=== PATIENT | male | born 1945 | race American Indian/Alaskan Native ===

== ENCOUNTER → 2017-09-12 | Outpatient (CLI) | payer MEDICARE, OTHER ==
[~2017-09-12] MED LIST: CAND16 PO; CITA20 PO; ENOX120I SUBQ; FEXO180; FEXO180 PO; FISH1000 PO; HYDCHL12.5; LEVOCETIRIZINE 5 MG; LISI20; MONT10T; MULVITMINF PO; PAXIL 37.5 MG; PIOG45; SIMV10 PO; WARF5 PO; ZAFI20
[2017-09-12 12:14] LABS: BASOPHILS ABSOLUTE AUTO 0.05 K/mm3 (0.00-0.23); BASOPHILS PERCENT AUTO 1 % (0-2); EOSINOPHILS ABSOLUTE AUTO 0.16 K/mm3 (0.00-0.68); EOSINOPHILS PERCENT AUTO 3 % (0-6); Hemoglobin 15.8 g/dL (13.5-17.5); IMMATURE GRAN ABSOLUTE AUTO 0.01 K/mm3 (0.00-0.10); IMMATURE GRAN PERCENT AUTO 0 % (0-1); LYMPHOCYTES PERCENT AUTO 39 % (21-46); MONOCYTES ABSOLUTE AUTO 0.53 K/mm3 (0.16-1.47); MONOCYTES PERCENT AUTO 10 % (4-13); Mean Corpuscular HGB 33.3 pg (26.0-34.0); Mean Corpuscular HGB Conc 35.9 g/dL (31.5-36.5); Mean Corpuscular Volume 93 fL (80-100); Mean Platelet Volume 10.6 fL (9.1-12.4); NEUTROPHILS ABSOLUTE AUTO 2.35 K/mm3 (1.96-9.15); NEUTROPHILS PERCENT AUTO 46 % (41-73); Platelet Count 247 K/mm3 (150-400); RDW Standard Deviation 41.2 fL (35.1-46.3); Red Blood Cell Count 4.75 M/mm3 (4.30-5.90)
[2017-09-12 12:29] LABS: Alanine Aminotransfer (ALT/SGP 26 U/L (12-78); Albumin, Blood 3.9 g/dL (3.4-5.0); Albumin/Globulin Ratio 1.2 (0.8-1.8); Alk Phos 61 U/L (50-136); Anion Gap 9 mmol/L (6-16); Aspartate Aminotrans (AST/SGOT 15 U/L (12-37); Bilirubin, Total 1.3 mg/dL (0.1-1.0); Blood Urea Nitrogen 13 mg/dL (8-24); Bun/Creatinine Ratio 20.7 (12.0-20.0); CO2, Blood 24 mmol/L (21-32); Calcium, Blood 8.8 mg/dL (8.5-10.1); Chloride, Blood 107 mmol/L (98-108); Creatinine, Blood 0.63 mg/dL (0.60-1.20); Globulin, Blood 3.2 g/dL (2.2-4.0); Glomerular Filtration Rate >60 (60-); Glucose, Blood 101 mg/dL (70-99); Potassium, Blood 4.2 mmol/L (3.5-5.5); Sodium, Blood 140 mmol/L (136-145); Total Protein, Blood 7.1 g/dL (6.4-8.2)
== END | disposition home or self-care (01) ==
LOC: LAB 12:01
PROVIDERS: Emergency Medicine
DX: R42 Dizziness and giddiness (principal); R53.83 Other fatigue
CPT/HCPCS: 80053; 84443; 85025

== ENCOUNTER 2019-03-06 12:24 | Day surgery (SDC) | payer MEDICARE, OTHER ==
[~2019-03-06] VITALS: Ht 172.7 cm; Wt 115.9 kg
[~2019-03-06 12:24] MED LIST changes: +ALBU90OI61; +ELIQUIS5 MG PO; +EPINEPHRIN0.3 MG/0.3; +LISI20 PO; +METF500 PO; +SIMV40 PO; +Simvastatin40 MG PO; +Simvastatin80 MG PO
== END 2019-03-06 15:00 | disposition home or self-care (01) ==
LOC: ORSCSDS 12:24
PROVIDERS: Internal Medicine Gastroenterology
PROC: 0DBM8ZX Excision of Descending Colon, Via Natural or Artificial Opening Endoscopic, Diagnostic (ICD-10-PCS; principal; 2019-03-06 13:45)
DX: Z12.11 Encounter for screening for malignant neoplasm of colon (principal); Z86.010 Personal history of colon polyps; D12.4 Benign neoplasm of descending colon; K57.30 Diverticulosis of large intestine without perforation or abscess without bleeding; K64.8 Other hemorrhoids; G47.33 Obstructive sleep apnea (adult) (pediatric); E66.01 Morbid (severe) obesity due to excess calories; Z68.41 Body mass index [BMI] 40.0-44.9, adult; I10 Essential (primary) hypertension; E11.9 Type 2 diabetes mellitus without complications; Z87.891 Personal history of nicotine dependence; Z79.899 Other long term (current) drug therapy
CPT/HCPCS: 82947; 88305; J2704; J7120

== ENCOUNTER → 2020-04-20 | Outpatient (CLI) | payer MEDICARE, OTHER | END | disposition home or self-care (01) | LOC: LAB 18:17 → LAB SHORT 18:17 | DX: R31.9 Hematuria, unspecified (principal) | CPT/HCPCS: 87086 ==

== ENCOUNTER → 2020-04-28 | Outpatient (CLI) | payer MEDICARE, OTHER ==
[2020-04-28 16:58] LABS: White Blood Cells, Urine Not Seen /hpf (0-5)
[2020-04-28 16:59] LABS: Bacteria Rare /hpf; Calcium Oxalate Crystals Few /hpf; Squamous Epithelial Cells Rare /hpf (Few); Uric Acid Crystals Few /hpf
== END | disposition home or self-care (01) ==
LOC: LAB SHORT 10:40 → LAB EV 10:40
PROVIDERS: Family Medicine
DX: R30.9 Painful micturition, unspecified (principal); R31.9 Hematuria, unspecified
CPT/HCPCS: 81015; 87086

== ENCOUNTER 2021-04-30 09:52 | Inpatient (IN) | payer MEDICARE, OTHER ==
[~2021-04-30] VITALS: Ht 172.7 cm; Wt 123.6 kg
[2021-04-30 10:48] LABS: PCO2 Arterial 29.2 mmHg (35-45); PO2 Arterial 72.9 mmHg (80-100); pH Blood Arterial 7.51 (7.35-7.45)
[2021-04-30 11:34] LABS: BASOPHILS ABSOLUTE AUTO 0.05 K/mm3 (0.00-0.23); BASOPHILS PERCENT AUTO 1 % (0-2); EOSINOPHILS ABSOLUTE AUTO 0.01 K/mm3 (0.00-0.68); EOSINOPHILS PERCENT AUTO 0 % (0-6); Hematocrit 43.4 % (37.0-53.0); Hemoglobin 15.5 g/dL (13.5-17.5); IMMATURE GRAN ABSOLUTE AUTO 0.25 K/mm3 (0.00-0.10); IMMATURE GRAN PERCENT AUTO 2 % (0-1); LYMPHOCYTES ABSOLUTE AUTO 1.16 K/mm3 (0.84-5.20); LYMPHOCYTES PERCENT AUTO 11 % (21-46); MONOCYTES ABSOLUTE AUTO 0.64 K/mm3 (0.16-1.47); MONOCYTES PERCENT AUTO 6 % (4-13); Mean Corpuscular HGB 33.3 pg (26.0-34.0); Mean Corpuscular HGB Conc 35.7 g/dL (31.5-36.5); Mean Corpuscular Volume 93 fL (80-100); Mean Platelet Volume 11.4 fL (9.1-12.4); NEUTROPHILS ABSOLUTE AUTO 8.31 K/mm3 (1.96-9.15); NEUTROPHILS PERCENT AUTO 80 % (41-73); NRBC ABSOLUTE 0.07 K/mm3 (0.00-0.02); NRBC Auto 0.7 /100 WBC (0.0-0.2); Platelet Count 252 K/mm3 (150-400); RDW Coefficient Variation 12.4 % (11.7-14.2); RDW Standard Deviation 42.9 fL (35.1-46.3); Red Blood Cell Count 4.65 M/mm3 (4.30-5.90); White Blood Cell Count 10.42 K/mm3 (4.00-11.30)
[2021-04-30 11:45] LABS: Alanine Aminotransfer (ALT/SGP 42 U/L (12-78); Albumin, Blood 2.7 g/dL (3.4-5.0); Albumin/Globulin Ratio 0.6 (0.8-1.8); Alk Phos 69 U/L (50-136); Anion Gap 12 mmol/L (6-16); Aspartate Aminotrans (AST/SGOT 50 U/L (12-37); Bilirubin, Total 1.5 mg/dL (0.1-1.0); Blood Urea Nitrogen 36 mg/dL (8-24); Bun/Creatinine Ratio 36.5 (12.0-20.0); CO2, Blood 21 mmol/L (21-32); Chloride, Blood 95 mmol/L (98-108); Creatinine, Blood 0.99 mg/dL (0.60-1.20); Globulin, Blood 4.4 g/dL (2.2-4.0); Glomerular Filtration Rate >60 (60-); Glucose, Blood 303 mg/dL (70-99); Potassium, Blood 3.6 mmol/L (3.5-5.5); Sodium, Blood 128 mmol/L (136-145); Total Protein, Blood 7.1 g/dL (6.4-8.2); Troponin I 0.033 ng/mL (0.000-0.040)
[2021-04-30] MEDS ORDERED: MAGNESIUM OXID500 MG PO (17:57)
[2021-04-30] MEDS ORDERED: Ocuvite Preser1 EACH PO (17:58)
--- NOTE | 2021-04-30 18:38 | NUR ---
PATIENT IS ALERT AND ORIENTED AND COOPERATIVE WITH CARE. ON BIPAP. 1PA WIT FWW. USES THE URINAL STANDING AT THE BEDSIDE. MEDICATIONS RECONCILED WITH THE PATIENT'S EULALIA OVER THE PHONE. WILL CONTINUE TO MONITOR
--- NOTE | 2021-05-01 03:45 | NUR ---
Shift Summary Pt admitted for Covid 19+. Code status Full code. The plan is to decrease 02 needs. Pt currently on bipap. Sats drop during this shift. Pt placed proned. This helped with 02 levels.
[2021-05-01 05:49] LABS: BASOPHILS ABSOLUTE AUTO 0.04 K/mm3 (0.00-0.23); BASOPHILS PERCENT AUTO 0 % (0-2); EOSINOPHILS ABSOLUTE AUTO 0.03 K/mm3 (0.00-0.68); EOSINOPHILS PERCENT AUTO 0 % (0-6); Hematocrit 42.3 % (37.0-53.0); Hemoglobin 14.9 g/dL (13.5-17.5); Mean Corpuscular HGB 32.8 pg (26.0-34.0); Mean Corpuscular HGB Conc 35.2 g/dL (31.5-36.5); Mean Corpuscular Volume 93 fL (80-100); NRBC ABSOLUTE 0.06 K/mm3 (0.00-0.02); NRBC Auto 0.5 /100 WBC (0.0-0.2); RDW Coefficient Variation 12.2 % (11.7-14.2); Red Blood Cell Count 4.54 M/mm3 (4.30-5.90)
[2021-05-01 05:55] LABS: IMMATURE GRAN ABSOLUTE AUTO 0.17 K/mm3 (0.00-0.10); IMMATURE GRAN PERCENT AUTO 1 % (0-1); LYMPHOCYTES PERCENT AUTO 8 % (21-46); MONOCYTES ABSOLUTE AUTO 0.55 K/mm3 (0.16-1.47); MONOCYTES PERCENT AUTO 4 % (4-13); Mean Platelet Volume 11.9 fL (9.1-12.4); NEUTROPHILS ABSOLUTE AUTO 11.41 K/mm3 (1.96-9.15); NEUTROPHILS PERCENT AUTO 86 % (41-73); Platelet Count 159 K/mm3 (150-400)
[2021-05-01 06:07] LABS: Albumin, Blood 2.7 g/dL (3.4-5.0); Anion Gap 7 mmol/L (6-16); Blood Urea Nitrogen 30 mg/dL (8-24); Bun/Creatinine Ratio 40.2 (12.0-20.0); CO2, Blood 27 mmol/L (21-32); Calcium, Blood 7.9 mg/dL (8.5-10.1); Chloride, Blood 100 mmol/L (98-108); Creatinine, Blood 0.75 mg/dL (0.60-1.20); Glomerular Filtration Rate >60 (60-); Glucose, Blood 324 mg/dL (70-99); Phosphorus, Blood 3.4 mg/dL (2.5-4.9); Potassium, Blood 3.6 mmol/L (3.5-5.5); Sodium, Blood 134 mmol/L (136-145)
[2021-05-01 11:48] LABS: Source, Urine Clean Catch
[2021-05-01 11:50] LABS: Appearance, Urine Clear (Clear); Bilirubin, Urine Neg (Neg); Blood, Urine 1+ (Neg); Color, Urine Yellow (P-Yellow); Glucose Qualitative, Urine 4+ (Neg); Ketones, Urine 3+ (Neg); Leukocyte Esterase, Urine Neg (Neg); Nitrite, Urine Neg (Neg); Protein, Urine 2+ (Neg); Specific Gravity, Urine 1.015 (1.003-1.022); Urobilinogen, Urine 1+ (Normal)
[2021-05-01 11:58] LABS: Bacteria Not Seen /hpf; Red Blood Cells, Urine 0-2 /hpf (0-2); Squamous Epithelial Cells Not Seen /hpf (Few); White Blood Cells, Urine Not Seen /hpf (0-5)
--- NOTE | 2021-05-01 15:27 | NUR ---
MIDIFT SUMMARY A/Ox3, currently on V60 with Bipap setting. Patient not able to tolerate off Bipap and will desat to low 80's. Patient removed bipap mask and desatted to mid 40's at one point. Bipap is keeping sats between 85-94. With any PO intake, sats will tank. Recommending patient be NPO at this time. Discussed with Dr. Massey RE respiratory concerns and that patient needs to be in PCU. Bipap settings have been maxed out, patient has been proning and repositioning to sides frequently without major improvements. No new order. Report handed to Dulce BEVERLY.
--- NOTE | 2021-05-01 17:33 | NUR ---
PATIENT IS ALERT AND ORIENTED, FORGETFUL AT TIMES. ON BIPAP. USES THE URINAL AT BEDSIDE. HAD A BM TODAY. NO C/O PAIN. 16 BREATHS PER MINUTE. CONTINUOUS PUSLSE OX. WILL CONTINUE TO MONITOR
--- NOTE | 2021-05-02 06:01 | NUR ---
0520 PT TRANSFERED TO ICU 14 AFTER UMBRELLA TIPPER HAND FOR INTUBATION. DR TOWNSEND AT BEDSIDE. PT MED WITH ETOMIDATE 20 MG IV AT 0521 SUCC 150 MG IV AT 0521 VERSED 2 MG IV AT 0522 VERSED 2 MG IV AT 0523 0523 PT INTUBATED WITH 8.0 ET TUBE. 27 CM AT TEETH. GOOD COLOR CHANGE, BILAT BREATH SOUNDS, AND VERIFIED BY CHEST XRAY. OG TUBE PLACED. ET TUBE WITHDRAWN TO 25 CM AT TEETH BY RT PER DR TOWNSEND. 0543 PT GIVEN 2 MG VERSED AND PROPOFOL GTT INFUSING.
[2021-05-02 06:16] LABS: BASOPHILS ABSOLUTE AUTO 0.04 K/mm3 (0.00-0.23); BASOPHILS PERCENT AUTO 0 % (0-2); EOSINOPHILS ABSOLUTE AUTO 0.01 K/mm3 (0.00-0.68); EOSINOPHILS PERCENT AUTO 0 % (0-6); Mean Corpuscular HGB Conc 34.9 g/dL (31.5-36.5); Mean Corpuscular Volume 95 fL (80-100); NRBC ABSOLUTE 0.15 K/mm3 (0.00-0.02); NRBC Auto 1.2 /100 WBC (0.0-0.2); RDW Coefficient Variation 13.1 % (11.7-14.2); RDW Standard Deviation 45.5 fL (35.1-46.3); Red Blood Cell Count 4.54 M/mm3 (4.30-5.90); White Blood Cell Count 12.81 K/mm3 (4.00-11.30)
--- NOTE | 2021-05-02 06:26 | NUR ---
0074 PT CALLED AND NOTIFIED OF PT ROOM CHANGE. UPDATED ON CURRENT PT STATUS. IS ADVISED TO CALL ICU FOR MORE INFORMATION.
--- NOTE | 2021-05-02 06:31 | NUR ---
SUMMARY PT ON BIPAP AND NOT TOLERATING WELL. PT FOUND IN BATHROOM AFTER TAKING OFF BIPAP AND PULLING OUT IV. PT PLACED ON BIPAP AND TX PER EMAR. PT ABLE TO RELAX AND BREATHE EASIER. PT HAD A POWERGLIDE PLACED. PT BECAME AGITATED AND ATTEMPTED TO GET OUT OF BED AFTER REMOVING BIPAP MASK. PT PLACED IN DOROTHY VEST. IV HALDOL ORDERED AND GIVEN WITH NO REDUCTION IN AGITATION. A RAPID RESPONSE WAS CALLED. PT WAS ASSESSED AND MOVED TO ICU.
[2021-05-02 06:34] LABS: Albumin, Blood 2.6 g/dL (3.4-5.0); Anion Gap 11 mmol/L (6-16); Blood Urea Nitrogen 49 mg/dL (8-24); CO2, Blood 23 mmol/L (21-32); Calcium, Blood 7.8 mg/dL (8.5-10.1); Chloride, Blood 104 mmol/L (98-108); Creatinine, Blood 2.04 mg/dL (0.60-1.20); Glomerular Filtration Rate 32 (60-); Glucose, Blood 271 mg/dL (70-99); IMMATURE GRAN ABSOLUTE AUTO 0.25 K/mm3 (0.00-0.10); IMMATURE GRAN PERCENT AUTO 2 % (0-1); LYMPHOCYTES ABSOLUTE AUTO 0.77 K/mm3 (0.84-5.20); LYMPHOCYTES PERCENT AUTO 6 % (21-46); MONOCYTES ABSOLUTE AUTO 0.35 K/mm3 (0.16-1.47); MONOCYTES PERCENT AUTO 3 % (4-13); Magnesium, Blood 2.1 mg/dL (1.6-2.4); Mean Platelet Volume 11.9 fL (9.1-12.4); NEUTROPHILS ABSOLUTE AUTO 11.39 K/mm3 (1.96-9.15); NEUTROPHILS PERCENT AUTO 89 % (41-73); Phosphorus, Blood 3.5 mg/dL (2.5-4.9); Platelet Count 115 K/mm3 (150-400); Sodium, Blood 138 mmol/L (136-145)
--- NOTE | 2021-05-02 06:45 | NUR ---
PT ARRIVES TO ICU 14 FROM MEDICAL FLOOR POST RAPID RESPONSE CALL. SLIDE TRANSFERRED TO BED WITH FIVE PERSON ASSIST. THIS AT 0520 THIS MORNING. PT EMERGENTLY INTUBATED BY DR TOWNSEND. PT PLACED TO PROPOFOL AND NEEDED TITRATION 70 MCG'S TO DECREASE PT'S AGITATION AND HELP HIM BECOME TOLERANT OF VENT. VERSED DRIP WAS ORDERED BY DR TOWNSEND. THIS WAS NOT STARTED SECONDARY TO BRIEF HYPOTENSION. DECREASED PROPOFOL TO 50 MCG'S. URINE SAMPLE OBTAINED FROM NEW CATHETER. SPUTUM SAMPLE OBTAINED AND SENT FOR TESTING. WILL CONTINUE TO MONITOR PT AND REPORT OFF TO ONCOMING RN.
--- NOTE | 2021-05-02 18:30 | NUR ---
SHIFT SUMMARY PT INADEQUATELY SEDATED ON ARRIVAL THIS MORNING, UNABLE TO INCREASE SEDATIVES D/T HYPOTENSION WITH MAP 40'S AND 50'S. DR. OROZCO AND DR. GOMEZ INSERTED L IJ CENTRAL LINE, LEVOPHED STARTED WITH GOOD RESULTS, SEDATION TITRATED UP TO COMFORT. AFTER TITRATIONS, MAPS REMAINED 60'S-70'S, RR 20'S, PT STOPPED GRIMACING. PROPOFOL 50MCG, VERSED 5MG/HR, LEVOPHED 12MCG. LS DIMINISHED, NO ETT SECRETIONS. VENT AC 16, Vt 450, PEEP 15, FIO2 DECREASED TO 70% TODAY WITH SPO2 >90%. HR 60'S SINUS WITH PAC'S, ABD SOFT WITH BT PRESENT, OGT TO LIWS, NO BM TODAY. URINE OUTPUT POOR, 300ML THIS SHIFT, DARK BROWN IN COLOR. UPDATED.
--- NOTE | 2021-05-02 19:35 | NUR ---
ASSUMPTION OF CARE RECEIVED REPORT FROM LUZ BEVERLY AT 1900. PATIENT INTUBATED WITH 8.0, 25 CM AT THE TEETH, VENT SETTINGS AC 16/450/15/70% WITH 02 SATS ABOVE 95%. LUNG SOUNDS DIMINISHED T/O. SCANT WHITE SECRETIONS SUCTIONED VIA ETT. SEDATION OF PROPOFOL AT 50MCG/KG AND VERSED OF 5MG/HR WITH SAS OF 3-4. NO SPONTANEOUS OR PURPOSEFUL MOVEMENTS NOTED. PUPILS 3MM, EQUAL, ROUND AND REACTIVE TO LIGHT. HEART RATE 60'S, NSR WITH LEVOPHED AT 12MCG/MIN, MAP IN 70'S. OG TO LIS WITH SCANT GREEN BILE DRAINAGE IN TUBING, HYPOACTIVE BT'S. MESSER TO GRAVITY WITH DARK MARIELA URINE. WILL REVIEW ORDERS AND TREAT PRESCRIBED.
--- NOTE | 2021-05-03 00:30 | NUR ---
REASSESSMENT REASSESSMENT COMPLETED AT 0000. NO ACUTE CHANGES FROM INITIAL ASSESSMENT. LEVOPHED DECREASED TO 10MCG/HR, CBG ELEVATED, TREATED PER PROTOCOL. PHONE CALL TO DR. TOWNSEND TO NOTIFY, AWAITING A RETURN CALL. VITALS CURRENTLY STABLE, CONTINUING TO MONITOR.
[2021-05-03 03:27] LABS: BASOPHILS ABSOLUTE AUTO 0.04 K/mm3 (0.00-0.23); BASOPHILS PERCENT AUTO 0 % (0-2); EOSINOPHILS PERCENT AUTO 0 % (0-6); Hematocrit 40.2 % (37.0-53.0); Hemoglobin 13.8 g/dL (13.5-17.5); IMMATURE GRAN ABSOLUTE AUTO 0.24 K/mm3 (0.00-0.10); IMMATURE GRAN PERCENT AUTO 2 % (0-1); LYMPHOCYTES ABSOLUTE AUTO 0.74 K/mm3 (0.84-5.20); LYMPHOCYTES PERCENT AUTO 5 % (21-46); MONOCYTES PERCENT AUTO 5 % (4-13); Mean Corpuscular HGB 32.9 pg (26.0-34.0); Mean Corpuscular HGB Conc 34.3 g/dL (31.5-36.5); Mean Corpuscular Volume 96 fL (80-100); Mean Platelet Volume 12.5 fL (9.1-12.4); NEUTROPHILS ABSOLUTE AUTO 13.82 K/mm3 (1.96-9.15); NEUTROPHILS PERCENT AUTO 89 % (41-73); NRBC ABSOLUTE 0.03 K/mm3 (0.00-0.02); NRBC Auto 0.2 /100 WBC (0.0-0.2); Platelet Count 102 K/mm3 (150-400); RDW Standard Deviation 49.3 fL (35.1-46.3); White Blood Cell Count 15.54 K/mm3 (4.00-11.30)
[2021-05-03 03:43] LABS: Albumin, Blood 2.2 g/dL (3.4-5.0); Anion Gap 9 mmol/L (6-16); Blood Urea Nitrogen 61 mg/dL (8-24); Bun/Creatinine Ratio 21.1 (12.0-20.0); CO2, Blood 21 mmol/L (21-32); Calcium, Blood 7.2 mg/dL (8.5-10.1); Chloride, Blood 105 mmol/L (98-108); Creatinine, Blood 2.89 mg/dL (0.60-1.20); Glomerular Filtration Rate 21 (60-); Glucose, Blood 420 mg/dL (70-99); Phosphorus, Blood 5.6 mg/dL (2.5-4.9); Potassium, Blood 4.6 mmol/L (3.5-5.5); Sodium, Blood 135 mmol/L (136-145)
--- NOTE | 2021-05-03 04:42 | NUR ---
REASSESSMENT REASSMENT OCCURRED AT 0400 WITH NO ACUTE CHANGES. NOTED PATIENT'S GLUCOSE VIA LAB DRAW, INSULIN S/S GIVEN. HEART RATE MOE 50'S WITH TRENDS DOWN TO 40'S, DECREASED VERSED TO 4MG/HR. PROPOFOL CONTINUES AT 50MCG/KG/MIN. LEVOPHED TITRATED DOWN TO 8MCG/HR, WITH MAPS ABOVE 65. WILL CONTINUE TO MONITOR.
[2021-05-03 05:35] LABS: PCO2 Arterial 46.3 mmHg (35-45); PO2 Arterial 102 mmHg (80-100)
[2021-05-03 05:36] LABS: pH Blood Arterial 7.26 (7.35-7.45)
--- NOTE | 2021-05-03 06:05 | NUR ---
SHIFT SUMMARY PATIENT INTUBATED AND SEDATED, FIO2 DECREASED TO 65% FROM 70%. TITRATED LEVOPHED TO 7MCG/MIN WITH MAP ABOVE 65. TITRATED VERSED TO 4MG/HR FOR LOW HEART RATE. HEART RATE NOW 50-60, PATIENT REMAINS VENT TOLERANT AND CALM/QUIET. HIGH BLOOD SUGARS, ADDRESSED WITH DR. BARRIGA, MEDICATED WITH 15 UNIT OF INSULIN CHARTED WELL INCREASING LONG ACTING INSULIN AND MEDICATING CHARTED. ABG RESULTED WITH CRITICAL PH, NOTIFIED DR. GRESHAM WITH NO CHANGES TO VENT SETTINGS ORDERED AT THIS TIME. OG TO LIS WITH DARK GREEN DRAINAGE, 100CC OUTPUT IN CANISTER. MESSER CATHETER STARTED WITH MARIELA URINE, CLEARING TO YELLOW WITH 1000CC DOCUMENTED. WILL CONTINUE TO MONITOR AND TREAT PRESCRIBED.
--- NOTE | 2021-05-03 10:27 | NUR ---
ASSUMED CARE NOTE: ASSUMED CARE OF PT AT 0700. PT IS SEDATED AND VENTED. SEDATED WITH VERSED AND PROPOFOL. PT HAS PINPOINT PUPILS, NO GAG/COUGH PRESENT. TITRATING SEDATIVES. VENT SETTINGS RR16, TV450, PEEP 15, FiO2 65% LUNG SOUNDS ARE DIM T/O, SPO2 REMAINING ABOVE 90% PT IS IN SB WITH HR IN THE 50'S, FREQUENT PAC'S PRESENT, PROLONGED QT NOTED. PT ON LEVOPHED AT 7MCG/MIN , SBP ABOVE 100, MAP ABOVE 65. INSULIN DRIP INITIATED, CURRENTLY RUNNING AT 6U/HR. WILL CONTINUE TO MONITOR PT T/O SHIFT.
[2021-05-03 10:38] LABS: Source, Urine Catheter
[2021-05-03 11:22] LABS: Bilirubin, Urine Neg (Neg); Blood, Urine 4+ (Neg); Glucose Qualitative, Urine 3+ (Neg); Ketones, Urine Neg (Neg); Leukocyte Esterase, Urine 1+ (Neg); Nitrite, Urine Neg (Neg); Protein, Urine 2+ (Neg); Urobilinogen, Urine NORM (Normal)
[2021-05-03 11:24] LABS: Appearance, Urine Hazy (Clear); Color, Urine Yellow (P-Yellow)
[2021-05-03 11:26] LABS: Bacteria Few /hpf; Squamous Epithelial Cells Few /hpf (Few); Uric Acid Crystals Mod /hpf; White Blood Cells, Urine 0-2 /hpf (0-5)
--- NOTE | 2021-05-03 18:29 | NUR ---
SHIFT SUMMARY: PT CONTINUES TO BE ON VENT WITH NO CHANGES TO THE SETTINGS RR16, TV450, PEEP 15, FiO2 60% PT HAS HAD SCANT AMOUNT OF BROWN SECRETIONS VIA ETT. VERSED WAS PLACED ON SB. PROPOFOL AT 45MCG/KG/MIN. PT HAS BEEN TOLERATING VENT. PT HAS BEEN IN SB WITH PAC'S HR IN THE 50'S. BP STABLE WITH LEVOPHED AT 7MCG/MIN, MAP ABOVE 65. PT STARTED ON TUBE FEED BOLUS, JEVITY 1.2, 100ML GIVEN, RESIDUALS TO BE CHECKED AT 2130, BEFORE NEXT FEED. ABD SLIGHTLY DISTENDED, SOFT NON-TENDER, HYPOACTIVE IN ALL QUADRANTS. MESSER PATENT AND DRAINING MARIELA COLORED URINE, UA COLLECTED THIS SHIFT. INSULIN RUNNING AT 23U/HR, HOURLY CBG OBTAINED, SAFE-SET TO CENTRAL LINE APPLIED. WILL CONTINUE TO MONITOR PT UNTIL REPORT IS GIVEN TO ONCOMING SHIFT.
--- NOTE | 2021-05-03 19:38 | NUR ---
ASSUMPTION OF CARE RECEIVED REPORT FROM LAYLA BEVERLY AT 1910. ASSUMED CARE OF PATIENT. PATIENT SEDATED ON PROPOFOL OF 45MCG/KG/MIN, TOLERATING VENT, NO S/S OF DISTRESS. ETT 8.0, 25 AT THE TEETH, VENT SETTINGS AC 16/450/12/60% 02 SATS OF 94%. LUNG SOUNDS COARSE BILATER UPPER, DIMINISHED IN BASES. OG CLAMPED WITH BOLUS TUBE FEEDS ORDERED, HYPOACTIVE BOWEL TONES. MESSER CATHETER PATENT AND DRAINING MARIELA URINE. LEVOPHED AT 7MCG/MIN WITH MAPS ABOVE 65. INSULIN DRIP INCREASED TO 24 UNIT/HR. CONTINUING TO CHECK CBG HOURLY UNTIL GOAL ACHEIVED. WILL CONTINUE TO REVIEW ORDERS AND TREAT PRESCRIBED.
[2021-05-04 04:02] LABS: BASOPHILS ABSOLUTE AUTO 0.02 K/mm3 (0.00-0.23); BASOPHILS PERCENT AUTO 0 % (0-2); EOSINOPHILS ABSOLUTE AUTO 0.02 K/mm3 (0.00-0.68); EOSINOPHILS PERCENT AUTO 0 % (0-6); Hematocrit 36.9 % (37.0-53.0); Hemoglobin 12.6 g/dL (13.5-17.5); IMMATURE GRAN ABSOLUTE AUTO 0.37 K/mm3 (0.00-0.10); IMMATURE GRAN PERCENT AUTO 3 % (0-1); LYMPHOCYTES PERCENT AUTO 3 % (21-46); MONOCYTES ABSOLUTE AUTO 0.67 K/mm3 (0.16-1.47); MONOCYTES PERCENT AUTO 5 % (4-13); Mean Corpuscular HGB Conc 34.1 g/dL (31.5-36.5); Mean Corpuscular Volume 97 fL (80-100); NEUTROPHILS ABSOLUTE AUTO 12.92 K/mm3 (1.96-9.15); NEUTROPHILS PERCENT AUTO 89 % (41-73); NRBC ABSOLUTE 0.03 K/mm3 (0.00-0.02); NRBC Auto 0.2 /100 WBC (0.0-0.2); RDW Coefficient Variation 13.9 % (11.7-14.2); Red Blood Cell Count 3.82 M/mm3 (4.30-5.90)
[2021-05-04 04:14] LABS: Mean Platelet Volume 13.2 fL (9.1-12.4); Platelet Count 91 K/mm3 (150-400)
[2021-05-04 04:23] LABS: Bun/Creatinine Ratio 21.4 (12.0-20.0); Calcium, Blood 7.3 mg/dL (8.5-10.1); Creatinine, Blood 2.76 mg/dL (0.60-1.20); Magnesium, Blood 2.2 mg/dL (1.6-2.4); Phosphorus, Blood 4.9 mg/dL (2.5-4.9); Potassium, Blood 3.4 mmol/L (3.5-5.5)
[2021-05-04 04:48] LABS: PCO2 Arterial 49.6 mmHg (35-45)
[2021-05-04 04:49] LABS: pH Blood Arterial 7.29 (7.35-7.45)
--- NOTE | 2021-05-04 06:01 | NUR ---
SHIFT SUMMARY PATIENT INTUBATED AND SEDATED, VENT SETTINGS UNCHANGED. PATIENT WITH COUGHT STIMULATED BY ACTIVITY. SUCTIONED SCANT, WHITE SECRETIONS VIA ETT. SATS REMAIN ABOVE 90%. ABG REVIEWED AND DISCUSSED WITH BUTTER PRODUCTION SUPERVISOR HEIDI. UNCHANGED FROM YESTERDAY WITH PATIENT TOLERATING VENT WELL. VERSED REMAINS OFF, PROPOFOL TITRATED DOWN TO 30MCG/KG/MIN, PATIENT REMAINS QUIET AND RESTFULL. LEVOPHED INFUSES AT 4MG/MIN WITH MAP ABOVE 65. INSULIN AT 2UNIT/HR, RESTARTED AT 0530 DUE TO GLUCOSE ELEVATION AFTER INSULIN WAS HELD FOR ONE HOUR. CXR COMPLETED, VITALS REMAINED STABLE. BOLUS FEEDS GIVEN PER PROTOCOL, RESIDUALS AROUND 100CC REFED. OG CLAMPED WHEN NOT IN USE. WILL CONTINUE TO MONITOR AND REPORT TO ONCOMING RN.
--- NOTE | 2021-05-04 16:19 | NUR ---
Update 05/04/21: Patient's condition continued to decline over the weekend. Desated on high flow oxygen via BiPAP. Decision made to intubate pt. and he was transferred to ICU. Per chart review, patient's oxygen requirements have decreased. Pt. remains intubated. Patient's has been updated regarding condition. Palliative care has been following pt. Update 05/01/21: Pt. on BiPAP with no significant improvements overnight. Per chart review, pt. not likely to be appropriate for discharge over the weekend. Palliative care is involved in patient's care. I contacted his PCP yesterday to advise him that pt. was in the ER and not doing well.
--- NOTE | 2021-05-04 19:08 | NUR ---
SUMMARY PT INTUBATED AND SEDATED WITH PROPOFOL. WILL GRIMACE TO PAINFUL STIMULUS. WAS ABLE TO TITRATE LEVOPHED OFF TODAY. REMAINS ON INSULIN GTT WITH STABLE BLOOD SUGARS. DR. OROZCO ORDERED TO TURN GTT OFF AFTER SEMGLEE DOSE TONIGHT. TOLERATING BOLUS TUBE FEEDS. NO OTHER CHANGES THIS SHIFT.
--- NOTE | 2021-05-04 21:01 | NUR ---
[facility] of Care Pt intubated and sedated with Propofol at 30mcg/kg/min. Grimacing with oral care and painful stimuli. No purposeful movements and unable to follow commands. Vent settings AC 16/450/12/60%, SpO2 92%. Lung sounds are coarse/dim throughout with thick vitale/brown secretions in ETT suction. HR is irregular with PAC's, rate 90's, BP normotensive. Insulin turned off after Long-acting insulin given per order, most recent CBG of 170. OG clamped, with bolus tube feeds at goal of 30ml/hr, 30ml q4h flushes. Last residual of 20ml. Strong patent, draining angelica urine. Orders have been reviewed and will treat as prescribed.
--- NOTE | 2021-05-05 01:13 | NUR ---
ATIVAN PATIENT WITH RESPIRATIONS IN THE 40'S, USING ACCESSORY MUSCLES AND SHALLOW BREATHING AGAINST VENT. 02 SATS 86-87% ON 60% FIO2. INCREASED PROPOFOL TO 60MCG/KG/HR AND GAVE ATIVAN 2MG. WILL MONITOR PATIENT'S RESPONSE.
[2021-05-05 04:04] LABS: BASOPHILS ABSOLUTE AUTO 0.04 K/mm3 (0.00-0.23); BASOPHILS PERCENT AUTO 0 % (0-2); Hematocrit 36.9 % (37.0-53.0); Hemoglobin 12.6 g/dL (13.5-17.5); LYMPHOCYTES ABSOLUTE AUTO 0.59 K/mm3 (0.84-5.20); LYMPHOCYTES PERCENT AUTO 4 % (21-46); MONOCYTES ABSOLUTE AUTO 0.54 K/mm3 (0.16-1.47); MONOCYTES PERCENT AUTO 3 % (4-13); Mean Corpuscular HGB 32.6 pg (26.0-34.0); Mean Corpuscular HGB Conc 34.1 g/dL (31.5-36.5); Mean Corpuscular Volume 95 fL (80-100); Mean Platelet Volume 12.7 fL (9.1-12.4); NRBC ABSOLUTE 0.06 K/mm3 (0.00-0.02); NRBC Auto 0.4 /100 WBC (0.0-0.2); Platelet Count 100 K/mm3 (150-400); RDW Coefficient Variation 14.1 % (11.7-14.2); RDW Standard Deviation 48.9 fL (35.1-46.3); Red Blood Cell Count 3.87 M/mm3 (4.30-5.90); White Blood Cell Count 16.52 K/mm3 (4.00-11.30)
[2021-05-05 04:06] LABS: EOSINOPHILS ABSOLUTE AUTO 0.09 K/mm3 (0.00-0.68); EOSINOPHILS PERCENT AUTO 1 % (0-6); IMMATURE GRAN ABSOLUTE AUTO 0.42 K/mm3 (0.00-0.10); IMMATURE GRAN PERCENT AUTO 3 % (0-1); NEUTROPHILS ABSOLUTE AUTO 14.84 K/mm3 (1.96-9.15); NEUTROPHILS PERCENT AUTO 90 % (41-73)
[2021-05-05 04:23] LABS: Bun/Creatinine Ratio 28.2 (12.0-20.0); Calcium, Blood 7.7 mg/dL (8.5-10.1); Creatinine, Blood 2.55 mg/dL (0.60-1.20); Potassium, Blood 4.6 mmol/L (3.5-5.5)
[2021-05-05 06:25] LABS: BAND PERCENT MAN 5 % (0-8); BASOPHILS PERCENT MAN 0 % (0-2); EOSINOPHILS PERCENT MAN 0 % (0-6); MONOCYTES ABSOLUTE MAN 0.49 K/mm3 (0.16-1.47); MONOCYTES PERCENT MAN 3 % (4-13); MYELOCYTE ABSOLUTE MAN 0.16 K/mm3 (0.00-0.00); MYELOCYTE PERCENT MAN 1 % (0-0); NEUTROPHILS ABSOLUTE MAN 15.85 K/mm3 (1.96-9.15); SEG NEUTROPHILS PERCENT MAN 91 % (41-73); TOTAL CELLS COUNTED 100
--- NOTE | 2021-05-05 06:54 | NUR ---
Pt remains intubated and sedated. Propofol increased to 60mcg/kg/min due to tachypnea and tachycardia. Pt had breif episode of HR in 180's, but returned back to sinus rhythm in 90's with PAC's. BP is hypotensive, Levophed at 7mcg/min, MAP >65. Lung sounds are very dim and shallow. Small secretions in ETT. Sats were in the upper 80's when RR in 30-40's and using accessory muscles. PRN Ativan given with some help. OG in place, bolus feeds given as ordered, residuals never >55mls. Strong patent and draining angelica clear urine, 600ml out during shift.
--- NOTE | 2021-05-05 10:42 | NUR ---
Ethics consultation service requested. Case details, medical history and clinical developments reviewed. 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 His co-morbidities include hypertension, type-II diabetes, and acute kidney injury. While Sajan has shown a modest decrease in 02 requirements, given his condition of health and age, it is thought that a code status of DNR would be the most medically responsible and proportionate approach in the tragic event of decompensation. I will notify his PCP that a gentle and candid discussion with the principals spouse to this end, may be useful, if indeed in Dr Hollis clinical judgement this is the ideal or preffered tactic. Thank you for this consult. Tommie Lainez ThD
[2021-05-05 13:44] LABS: International Normalized Ratio 1.12
--- NOTE | 2021-05-05 18:14 | NUR ---
SUMMARY PT INTUBATED AND SEDATED WITH PROPOFOL AND FENTANYL. FENTANYL WAS STARTED TODAY DUE TO PT NOT TOLERATING VENT WELL AND LOOKED UNCOMFORTABLE. RESP AND OVERALL VENT TOLERANCE HAS IMPROVED SINCE FENTANYL WAS STARTED. TOLERATING BOLUS TUBE FEEDS WITH LESS THAN 10ML RESIDUAL BEFORE EACH FEEDING. HEPARIN WAS STARTED TODAY. REMAINS ON LEVOPHED. NO OTHER CHANGES THIS SHIFT.
--- NOTE | 2021-05-05 22:09 | NUR ---
ASSUMED CARE OF PT AT 1900, REPORT RECEIVED FROM ALFREDO BEVERLY. PT INTUBATED AND SEDATED. VENT SETTINGS AC 16/450/12/60% WITH SPO2 >90%. LUNGS COARSE WITH DIM BASES. HYPOACTIVE BOWEL TONES. PT PRONED AT 2100. HR 70-130'S, SBP 90'S WITH MAP >65 ON LEVO. PT CURRENTLY HAS INFUSING: LEVO @ 9 MCG/KG, PROPOFOL @ 60 MCG/KG, HEPARIN @ 15 UNITS/KG/HR, AND FENTANYL @ 50 MCG/HR. BOLUS TF VHP, 120 Q4H WITH 30 ML Q4H WATER FLUSHES. PULSES PALPABLE. MESSER DRAINING DARK YELLOW URINE TO GRAVITY.
[2021-05-06 05:02] LABS: BASOPHILS ABSOLUTE AUTO 0.04 K/mm3 (0.00-0.23); BASOPHILS PERCENT AUTO 0 % (0-2); Hematocrit 34.1 % (37.0-53.0); Hemoglobin 11.4 g/dL (13.5-17.5); LYMPHOCYTES PERCENT AUTO 5 % (21-46); MONOCYTES ABSOLUTE AUTO 0.66 K/mm3 (0.16-1.47); MONOCYTES PERCENT AUTO 4 % (4-13); Mean Corpuscular HGB 32.3 pg (26.0-34.0); Mean Corpuscular HGB Conc 33.4 g/dL (31.5-36.5); Mean Corpuscular Volume 97 fL (80-100); Mean Platelet Volume 12.4 fL (9.1-12.4); NRBC ABSOLUTE 0.03 K/mm3 (0.00-0.02); NRBC Auto 0.2 /100 WBC (0.0-0.2); Platelet Count 145 K/mm3 (150-400); RDW Coefficient Variation 14.1 % (11.7-14.2); RDW Standard Deviation 50.3 fL (35.1-46.3); Red Blood Cell Count 3.53 M/mm3 (4.30-5.90); White Blood Cell Count 16.98 K/mm3 (4.00-11.30)
[2021-05-06 05:19] LABS: EOSINOPHILS ABSOLUTE AUTO 0.31 K/mm3 (0.00-0.68); EOSINOPHILS PERCENT AUTO 2 % (0-6); IMMATURE GRAN ABSOLUTE AUTO 0.98 K/mm3 (0.00-0.10); IMMATURE GRAN PERCENT AUTO 6 % (0-1); NEUTROPHILS ABSOLUTE AUTO 14.19 K/mm3 (1.96-9.15); NEUTROPHILS PERCENT AUTO 84 % (41-73)
[2021-05-06 05:24] LABS: Bun/Creatinine Ratio 31.4 (12.0-20.0); Calcium, Blood 7.6 mg/dL (8.5-10.1); Creatinine, Blood 2.83 mg/dL (0.60-1.20); Potassium, Blood 5.1 mmol/L (3.5-5.5)
[2021-05-06 06:03] LABS: BAND PERCENT MAN 3 % (0-8); BASOPHILS PERCENT MAN 0 % (0-2); EOSINOPHILS ABSOLUTE MAN 0.33 K/mm3 (0.00-0.68); EOSINOPHILS PERCENT MAN 2 % (0-6); LYMPHOCYTES ABSOLUTE MAN 0.84 K/mm3 (0.84-5.20); LYMPHOCYTES PERCENT MAN 5 % (21-46); MONOCYTES ABSOLUTE MAN 0.33 K/mm3 (0.16-1.47); MONOCYTES PERCENT MAN 2 % (4-13); MYELOCYTE ABSOLUTE MAN 0.16 K/mm3 (0.00-0.00); MYELOCYTE PERCENT MAN 1 % (0-0); NEUTROPHILS ABSOLUTE MAN 15.28 K/mm3 (1.96-9.15); SEG NEUTROPHILS PERCENT MAN 87 % (41-73); TOTAL CELLS COUNTED 100
--- NOTE | 2021-05-06 06:45 | NUR ---
SHIFT SUMMARY PT REMAINS INTUBATED AND SEDATED. VENT SETTINGS UNCHANGED THIS SHIFT, AC 16/450/12/60% WITH SPO2 >88%. HEPARIN INFUSING @ 14 UNITS/KG/HR, FENTANYL @ 50 MCG/KG, PROPOFOL @ 60 MCG/KG, AND LEVO @ 9 MCG/KG. LUNGS COARSE WITH DIMINISHED BASES, SCANT AMOUNT OF THICK WHITE SECRETIONS SUCTIONED FROM ETT. PT PRONED AT 2100. NO BM THIS SHIFT. BT'S HYPOACTIVE T/O SHIFT. TF BOLUSES OF 120 ML GIVEN Q4H WITH 30 ML OF WATER. RESIDUALS MINIMAL THIS SHIFT.
--- NOTE | 2021-05-06 07:00 | NUR ---
PT CARE ASSUMED AFTER REPORT FROM CIVIL PREPAREDNESS TRAINING OFFICER. PT PRONE, SEDATED AND INTUBATED. PT NOT AROUSABLE. URINE IN CATHETER MARIELA/RED/BROWN IN COLOR.
--- NOTE | 2021-05-06 12:16 | NUR ---
Ethics update: t/c facilitated with the primary attending physician Dr Ben Almonte to discuss the principals code status. He has agreed to hold a conversation with Sajan's , to gently consider modifying his standing from full code to DNR.
--- NOTE | 2021-05-06 14:07 | NUR ---
Echocardiogram completed.
--- NOTE | 2021-05-06 18:00 | NUR ---
PT STABLE THROUGHOUT DAY. ABLE TO WEAN SEDATION BUT PT STILL NOT OPENING EYES AT THIS TIME. AROUND 1700 PT WENT INTO AFIB 60-70S. DR GRESHAM NOTIFIED. NO NEW ORDERS RECEIVED. FAMILY UPDATED.
--- NOTE | 2021-05-06 18:55 | NUR ---
Update 05/06/21: Day 6 of hospitalization. Day 4 on mechanical vent. Ethics committee reviewed patient's case yesterday and gave recommendation that Primary Hospital Physician discuss code status with patient's . Consider possible DNR. Dr. Almonte contact patient's Marie today to update her on his status and discuss code status. Patient's renal function has declined, so dialysis was also discussed. Per review of chart notes, Marie is choosing to keep status as full code and would request dialysis if indicated. Nephrology consult has been ordered. Request sent to palliative care to ensure that they are involved in patient's care. I am not finding recent notes from palliative care nurse. Hopeful that palliative care will provide Marie with the support she is needing and answer questions as appropriate. Plan to continue to follow patient's care and provide care coordination as needed. Also provided update to PCP Rafi TERRY. He would be happy to talk with family if needed at anytime. He can be reached at [phone].
--- NOTE | 2021-05-06 22:40 | NUR ---
ASSUMED CARE PATIENT LYING IN BED INTUBATED ON VC 16/450/10/60% AND SEDATED WITH PROPOFOL @40MCG/KG/MIN AND FENTANYL GTT @ 50MCG/HR; HEPARIN INF @ 14UNITS/KG/HR, LEVPHED @ 4MCG/MIN AND NS TKO X 2 INTO CL. TF INF @ 20ML/HR VIA OGT. WILL CONTINUE TO MONITOR.
[2021-05-07 02:31] LABS: Hematocrit 32.8 % (37.0-53.0); Hemoglobin 11.2 g/dL (13.5-17.5); Mean Corpuscular HGB 32.8 pg (26.0-34.0); Mean Corpuscular HGB Conc 34.1 g/dL (31.5-36.5); Mean Corpuscular Volume 96 fL (80-100); Mean Platelet Volume 11.7 fL (9.1-12.4); Platelet Count 159 K/mm3 (150-400); RDW Standard Deviation 49.6 fL (35.1-46.3); Red Blood Cell Count 3.41 M/mm3 (4.30-5.90); White Blood Cell Count 18.57 K/mm3 (4.00-11.30)
[2021-05-07 03:03] LABS: BAND PERCENT MAN 8 % (0-8); BASOPHILS PERCENT MAN 0 % (0-2); Bun/Creatinine Ratio 31.5 (12.0-20.0); Calcium, Blood 7.4 mg/dL (8.5-10.1); Creatinine, Blood 3.11 mg/dL (0.60-1.20); EOSINOPHILS ABSOLUTE MAN 0.18 K/mm3 (0.00-0.68); EOSINOPHILS PERCENT MAN 1 % (0-6); LYMPHOCYTES ABSOLUTE MAN 0.74 K/mm3 (0.84-5.20); LYMPHOCYTES PERCENT MAN 4 % (21-46); METAMYELOCYTE ABSOLUTE MAN 0.18 K/mm3 (0.00-0.00); METAMYELOCYTE PERCENT MAN 1 % (0-0); MONOCYTES ABSOLUTE MAN 0.74 K/mm3 (0.16-1.47); MONOCYTES PERCENT MAN 4 % (4-13); MYELOCYTE ABSOLUTE MAN 0.18 K/mm3 (0.00-0.00); MYELOCYTE PERCENT MAN 1 % (0-0); NEUTROPHILS ABSOLUTE MAN 16.52 K/mm3 (1.96-9.15); Potassium, Blood 6.1 mmol/L (3.5-5.5); SEG NEUTROPHILS PERCENT MAN 81 % (41-73); TOTAL CELLS COUNTED 100
--- NOTE | 2021-05-07 06:25 | NUR ---
SHIFT SUMMARY PATIENT REMAINED INTUBATED AND SEDATED ON PROPOFOL @ 40MCG/KG/MIN AND FENTANYL GTT @ 50MCG/HR; LEVOPHED PLACED ON SB WITH PRESSURES MAINTAINING AT MAP IN 70'S-80'S, HEPARIN INCREASED TO 14.5UNITS/KG/HR AND NS TKO X2 INF. VENT SETTINGS REMAINED AT VC 16/450/10/70% WITH COMPLIANCE. AM LABS SHOWED HYPERKALEMIA OF 6.1; CALL MADE TO DR. MENDIOLA AND RECIEVED ORDERS FOR INSULIN AND D50; POTASSIUM IMPROVED 1 HOUR LATER TO 5.8. TF REMAINED AT 25ML/HR WITH MINIMAL TO NO RESIDUALS. NO OTHER MAJOR CHANGES DURING SHIFT. WILL CONTINUE TO MONITOR UNTIL REPORT GIVEN TO ONCOMING RN.
[2021-05-07 07:16] LABS: PO2 Arterial 76.3 mmHg (80-100)
[2021-05-07 07:19] LABS: PCO2 Arterial 58.4 mmHg (35-45)
--- NOTE | 2021-05-07 14:28 | NUR ---
Per chart review, pt remains intubated and sedated. ethical consult was completed today for advanced long-term care of patient. Palliative care has been asked to meet with family to discuss pt's current situation and discuss their care expectations. Pt is in soft wrist restraints to protect airway and lines. -carley
--- NOTE | 2021-05-07 19:15 | NUR ---
Assumed care. Report recieved from mattinjesse RN. Pt in bed, on ventilator and sedation. Ventilator settings: AC/VC 16 , TV 450, PEEP 10, Fi02 70%. Pt has L/IJ IV access and ANALI powerglide. IV pump settings are as follows: Propofol 60 mcg/kg/hr, Heparin 15.5 units/kg/hr, Sodium Bicarb 75 ml/hr, NS 10 ml/hr. OG tube in place, tube feed running at 30 ml/hr. Strong catheter in place, draining angelica/dark urine. No other acute needs noted at this time, will continue to monitor.
--- NOTE | 2021-05-07 19:36 | NUR ---
Pal Care Case conf note: Pal Care referral requested by ICU human service technician. I discussed case with bedside RN and Dr Perez, who was in agreement with Pal Care consult. Manjula had called in and felt pt's was not processing medical information well. Unfortunately we do not have daughter's name and number to reach back out to her. I contacted [facility], who did not have any family contact information other than pt's Marie. Pt's daughter did receive an update from pt's bedside RN this am. I made two unsuccessful attempts to reach pt's today, to answer any questions and gently approach pt's wishes/code status considerations due to pt's guarded prognosis and multi-system failure at this time. Pal Care will cont to attempt to reach out to . received from bedside RN.
[2021-05-08 01:35] LABS: BASOPHILS ABSOLUTE AUTO 0.06 K/mm3 (0.00-0.23); BASOPHILS PERCENT AUTO 0 % (0-2); EOSINOPHILS ABSOLUTE AUTO 0.11 K/mm3 (0.00-0.68); EOSINOPHILS PERCENT AUTO 1 % (0-6); Hematocrit 32.9 % (37.0-53.0); Hemoglobin 11.2 g/dL (13.5-17.5); IMMATURE GRAN ABSOLUTE AUTO 1.48 K/mm3 (0.00-0.10); IMMATURE GRAN PERCENT AUTO 7 % (0-1); LYMPHOCYTES ABSOLUTE AUTO 0.61 K/mm3 (0.84-5.20); LYMPHOCYTES PERCENT AUTO 3 % (21-46); MONOCYTES ABSOLUTE AUTO 1.38 K/mm3 (0.16-1.47); MONOCYTES PERCENT AUTO 7 % (4-13); Mean Corpuscular HGB 32.8 pg (26.0-34.0); Mean Corpuscular Volume 97 fL (80-100); Mean Platelet Volume 11.8 fL (9.1-12.4); NEUTROPHILS ABSOLUTE AUTO 17.64 K/mm3 (1.96-9.15); NEUTROPHILS PERCENT AUTO 83 % (41-73); NRBC ABSOLUTE 0.02 K/mm3 (0.00-0.02); NRBC Auto 0.1 /100 WBC (0.0-0.2); Platelet Count 207 K/mm3 (150-400); RDW Coefficient Variation 13.9 % (11.7-14.2); RDW Standard Deviation 49.3 fL (35.1-46.3); Red Blood Cell Count 3.41 M/mm3 (4.30-5.90); White Blood Cell Count 21.28 K/mm3 (4.00-11.30)
[2021-05-08 01:51] LABS: Magnesium, Blood 1.8 mg/dL (1.6-2.4)
[2021-05-08 02:01] LABS: BAND PERCENT MAN 6 % (0-8); BASOPHILS PERCENT MAN 0 % (0-2); EOSINOPHILS PERCENT MAN 0 % (0-6); LYMPHOCYTES ABSOLUTE MAN 0.63 K/mm3 (0.84-5.20); LYMPHOCYTES PERCENT MAN 3 % (21-46); METAMYELOCYTE ABSOLUTE MAN 0.21 K/mm3 (0.00-0.00); METAMYELOCYTE PERCENT MAN 1 % (0-0); MONOCYTES ABSOLUTE MAN 1.48 K/mm3 (0.16-1.47); MONOCYTES PERCENT MAN 7 % (4-13); MYELOCYTE ABSOLUTE MAN 0.21 K/mm3 (0.00-0.00); MYELOCYTE PERCENT MAN 1 % (0-0); NEUTROPHILS ABSOLUTE MAN 18.72 K/mm3 (1.96-9.15); SEG NEUTROPHILS PERCENT MAN 82 % (41-73); TOTAL CELLS COUNTED 100
[2021-05-08 02:05] LABS: Albumin, Blood 1.6 g/dL (3.4-5.0); Anion Gap 6 mmol/L (6-16); Blood Urea Nitrogen 115 mg/dL (8-24); Bun/Creatinine Ratio 34.1 (12.0-20.0); CO2, Blood 27 mmol/L (21-32); Calcium, Blood 6.7 mg/dL (8.5-10.1); Chloride, Blood 92 mmol/L (98-108); Creatinine, Blood 3.37 mg/dL (0.60-1.20); Glomerular Filtration Rate 18 (60-); Glucose, Blood 187 mg/dL (70-99); Potassium, Blood 6.3 mmol/L (3.5-5.5); Sodium, Blood 125 mmol/L (136-145)
--- NOTE | 2021-05-08 07:40 | NUR ---
Shift summary. Pt continues on ventilator, settings: AC/VC 16/450/10/80% Fi02. OG tube in place, tube feed running at goal rate 20 ml/hr. Pt has left/IJ and ANALI powerglide in place. IV pump settings: Propofol 40 mcg/kg/min, Levophed 8 mcg/min, Fentanyl DIRECTOR OF INSTITUTIONAL SALES 50 mcg/hr, Sodium bicarb 75 ml/hr, NS 10 ml/hr, Heparin on standby. Titrated levophed back on during beginning of shift, started at 2 and increased to 4, then 8. Propofol titrated down to 40. Patient had critical labs reported, potassium 6.3 and phosphate 9.0, physician called, D50 and insulin given, see chart. After subsequent critical lab, patient had trialysis catheter inserted for dialysis, R/femoral access. Dialysis notified. See pt notes for details. Report given to karen BEVERLY.
[2021-05-08 08:12] LABS: Creatinine, Blood 3.43 mg/dL (0.60-1.20); Potassium, Blood 6.4 mmol/L (3.5-5.5)
[2021-05-08 11:08] LABS: Base Excess Venous 1.8 mmol/L; Bicarbonate Venous 24.6 mmol/L (24.0-30.0); PCO2 Venous 70.5 mmHg (38-42); PO2 Venous 53.8 mmHg (38-42); pH Blood Venous 7.23 (7.34-7.37)
--- NOTE | 2021-05-08 12:06 | NUR ---
called she is bringinin his advance directive dr klein would like to meet with her to discuss care. will follow up with plan of care and do sofa score after dialysis. Carlosi bimal report moderate tolerance with svt during treatment
[2021-05-08 12:10] LABS: Source, Urine Catheter
[2021-05-08 12:14] LABS: Bilirubin, Urine Neg (Neg); Blood, Urine 5+ (Neg); Glucose Qualitative, Urine 1+ (Neg); Ketones, Urine 1+ (Neg); Leukocyte Esterase, Urine 3+ (Neg); Nitrite, Urine Pos (Neg); Protein, Urine 3+ (Neg); Urobilinogen, Urine 1+ (Normal)
[2021-05-08 12:41] LABS: Appearance, Urine Hazy (Clear); Color, Urine Brown (P-Yellow)
[2021-05-08 12:45] LABS: Red Blood Cells, Urine TNTC /hpf (0-2)
[2021-05-08 12:46] LABS: Squamous Epithelial Cells Few /hpf (Few)
[2021-05-08 12:47] LABS: Amorphous Light (0-Heavy); Bacteria Few /hpf
--- NOTE | 2021-05-08 17:22 | NUR ---
PT HAD FIRST DIALYSIS TODAY. UNABLE TO TOLERATE FULL TX. HR IN 160S, BP DROP. ABLE TO COMPLETE ENOUGH TO RETURN K+ TO LOWER VALUES. BROUGHT ADVANCE DIRECTIVES TODAY AND PT WISHES ARE NOT TO CONTINUE EXCESSIVE MEASURES IF RECOVERY NOT PROBABLE. WANTS TO WAIT UNTIL ALL KIDS ARE PRESENT TOMORROW BEFORE MAKING A FINAL DECISION.
--- NOTE | 2021-05-08 23:04 | NUR ---
ASSUMED PT CARE AT 1915 FROM SIRIA BELLO PT INTUBATED AND SEDATED. PROPOFOL AT 40MCG/KG/MIN AND FENTANYL AT 50MCG/HR. VENT SETTINGS AC/VC 16, VT 450, PEEP 10, FIO2 80%. RR 24. SPO2 >90%. PT IS NONRESPONSIVE TO VERBAL STIMULI, WELL HE DOES NOT WITHDRAWAL FROM NOXIOUS STIMULI; HOWEVER, HE DOES GRIMACE TO STERNAL RUB. PROPOFOL TURNED OFF AROUND 0 FOR SEDATION VACATION WITH SAME RESPONSE TO STIMULUS; WILL CONTINUE TO MONITOR NEURO STATUS. LEVOPHED WAS AT 2MCG/MIN UPON ASSUMPTION OF CARE; HOWEVER, D/T TURNING OFF PROPOFOL I WAS ABLE TO TITRATE LEVOPHED OFF. PT IS NOTED TO BE SINUS RHYTHM WITH HR 90'S; HOWEVER, OCCASIONALLY NOTED TO BE IN A SINUS ARRHYTHMIA. BP'S ARE NOW HYPERTENSIVE WITH SBP 160'S WITH PROPOFOL BEING OFF. VHP INFUSING AT GOAL OF 20ML/HR WITH MINIMAL RESIDUALS. MESSER CATHETER IS PATENT AND DRAINING MINIMAL TEA COLORED URINE TO GRAVITY. PT HAS A CENTRAL LINE TO LEFT IJ, MIDLINE TO ANALI, AND A TRIALYSIS CATHETER TO RIGHT FEMORAL VEIN. SEE SHIFT SUMMARY FOR FURTHER DETAILS.
--- NOTE | 2021-05-09 01:21 | NUR ---
REASSESSMENT GLUCOSE RESULTED AT 59 MG/DL; TREATED PER HYPOGLYCEMIC PROTOCOL WITH A HALF AMP OF 50% DEXTROSE WITH RECHECK RESULTING AT 78 MG/DL. WILL CONTINUE TO MONITOR WITH MORNING LABS AND TREAT ACCORDINGLY.
[2021-05-09 04:28] LABS: Hematocrit 31.1 % (37.0-53.0); Hemoglobin 10.5 g/dL (13.5-17.5); Mean Corpuscular HGB 32.8 pg (26.0-34.0); Mean Corpuscular HGB Conc 33.8 g/dL (31.5-36.5); Mean Corpuscular Volume 97 fL (80-100); Mean Platelet Volume 11.8 fL (9.1-12.4); NRBC ABSOLUTE 0.05 K/mm3 (0.00-0.02); NRBC Auto 0.2 /100 WBC (0.0-0.2); Platelet Count 234 K/mm3 (150-400); RDW Coefficient Variation 13.7 % (11.7-14.2); RDW Standard Deviation 49.3 fL (35.1-46.3); White Blood Cell Count 26.62 K/mm3 (4.00-11.30)
[2021-05-09 04:44] LABS: Anion Gap 7 mmol/L (6-16); Blood Urea Nitrogen 88 mg/dL (8-24); Bun/Creatinine Ratio 28.9 (12.0-20.0); CO2, Blood 31 mmol/L (21-32); Calcium, Blood 7.2 mg/dL (8.5-10.1); Chloride, Blood 93 mmol/L (98-108); Creatinine, Blood 3.05 mg/dL (0.60-1.20); Glomerular Filtration Rate 20 (60-); Glucose, Blood 62 mg/dL (70-99); Potassium, Blood 5.3 mmol/L (3.5-5.5); Sodium, Blood 131 mmol/L (136-145)
[2021-05-09 04:59] LABS: Phosphorus, Blood 8.8 mg/dL (2.5-4.9)
--- NOTE | 2021-05-09 05:45 | NUR ---
END OF SHIFT SUMMARY PT REMAINS INTUBATED WITH VENT SETTINGS AC/VC 16, VT 450, PEEP 10, FIO2 80%, SPO2 >90%. PT PRODUCING MODERATE AMOUNTS OF THICK, BLOODY SPUTUM VIA ETT SUCTIONING. PROPOFOL TURNED OFF AT BEGINNING OF SHIFT AND HAS REMAINED OFF. PT REMAINS UNRESPONSIVE TO VERBAL AND NOXIOUS STIMULI. CURRENT BREATHING PATTERN IS "GUPPY BREATHING" AROUND ETT. FENTANYL REMAINS AT 50MCG/HR. PT HAS BEEN IN NSR TO SINUS ARRHYTHMIA T/O SHIFT; HR 90-100'S. BP'S STABLE; LEVOPHED HAS REMAINED OFF MOST OF SHIFT WELL. HEPARIN GTT REMAINS AT 15.5 UNITS/KG/HR. BICARB AT 75MLS/HR. MESSER PATENT AND DRAINING TEA COLORED URINE TO GRAVITY; 100CC THIS SHIFT. CALLED STATING DAUGHTER WOULD BE VISITING TODAY FROM [place] OF [place]OWN TO SAY HER GOODBYES. DECLINED WANTING AND UPDATE ON PT'S STATUS AND SOUNDED VERY EMOTIONALLY DISTRAUGHT. WILL CONTINUE TO MONITOR UNTIL REPORT IS HANDED OFF TO ONCOMING RN.
[2021-05-09 05:50] LABS: BAND PERCENT MAN 5 % (0-8); BASOPHILS PERCENT MAN 0 % (0-2); EOSINOPHILS PERCENT MAN 0 % (0-6); LYMPHOCYTES ABSOLUTE MAN 0.26 K/mm3 (0.84-5.20); LYMPHOCYTES PERCENT MAN 1 % (21-46); METAMYELOCYTE ABSOLUTE MAN 0.53 K/mm3 (0.00-0.00); METAMYELOCYTE PERCENT MAN 2 % (0-0); MONOCYTES ABSOLUTE MAN 3.72 K/mm3 (0.16-1.47); MONOCYTES PERCENT MAN 14 % (4-13); MYELOCYTE ABSOLUTE MAN 0.26 K/mm3 (0.00-0.00); MYELOCYTE PERCENT MAN 1 % (0-0); NEUTROPHILS ABSOLUTE MAN 21.82 K/mm3 (1.96-9.15); SEG NEUTROPHILS PERCENT MAN 77 % (41-73); TOTAL CELLS COUNTED 100
--- NOTE | 2021-05-09 06:40 | NUR ---
CRITICAL GLUCOSE RECHECKED GLUCOSE AFTER TREATING GLUCOSE OF 49 WITH AN AMP OF 50% DEXTROSE WITH THE RESULT CRITICALLY LOW AT 19. THEREFORE ADMINISTERED ANOTHER AMP OF 50% DEXTROSE AND CALLED FOR A GTT. DR. BECKMAN ENTERED ORDERS FOR D5 IN 1/2NS TO INFUSE AT 100ML/HR. WILL CONTINUE TO MONITOR GLUCOSE.
[2021-05-09 10:17] LABS: PO2 Arterial 78.8 mmHg (80-100)
[2021-05-09 10:18] LABS: PCO2 Arterial 75.7 mmHg (35-45)
--- NOTE | 2021-05-09 11:54 | NUR ---
family coming in for decision making pt declining.
--- NOTE | 2021-05-09 19:06 | NUR ---
phone call support dilia mcgregor anna [place] [facility] [place] on comfort care . will follow up with family.
--- NOTE | 2021-05-09 20:36 | NUR ---
pt placed on comfort care family could not bare to stay. made sure the was home first and also she gave funneral information of [facility],
--- NOTE | 2021-05-09 21:22 | NUR ---
COMFORT CARE ETT PULLED AT 2109 BY RT. PT MEDICATED WITH DILAUDID AND ATIVAN AT 2108 PRIOR TO REMOVAL PER COMFORT CARE ORDERS. PT DISCONTINUED FROM ALL DRIPS OTHER THAN FENTANYL COMMERCIAL SPECIALIST THAT WAS INFUSING AT 50MCG/HR. PT IMMEDIATELY DROPPED HIS OXYGEN SATURATIONS TO 60% FOLLOWED BY HR THAT DROPPED TO 40'S FROM 90'S. PT AT 2114.
[2021-05-10 00:06] LABS: HBSAG SCREEN Negative (Negative); HEP A AB, IGM Negative (Negative); HEP B CORE AB, IGM Negative (Negative); HEP C VIRUS AB <0.1 (0.0-0.9)
== END 2021-05-09 21:15 | DRG 207 ==
LOC: ER 09:52 → ICUW 12:59 → ERHOLD 12:59 → MEDS 12:59 → ICUW 05-02 05:08
PROVIDERS: Family Medicine; Internal Medicine Critical Care Medicine; Internal Medicine Nephrology; Physician Assistant; Student in an Organized Health Care Education/Training Program; ADMIT Internal Medicine Gastroenterology
PROC: 5A09357 Assistance with Respiratory Ventilation, Less than 24 Consecutive Hours, Continuous Positive Airway Pressure (ICD-10-PCS; 2021-04-30)
PROC: 8E0ZXY6 Isolation (ICD-10-PCS; 2021-04-30)
PROC: 3E0333Z Introduction of Anti-inflammatory into Peripheral Vein, Percutaneous Approach (ICD-10-PCS; 2021-04-30)
PROC: XW033E5 Introduction of Remdesivir Anti-infective into Peripheral Vein, Percutaneous Approach, New Technology Group 5 (ICD-10-PCS; 2021-04-30)
PROC: 5A1955Z Respiratory Ventilation, Greater than 96 Consecutive Hours (ICD-10-PCS; principal; 2021-05-02)
PROC: 0BH17EZ Insertion of Endotracheal Airway into Trachea, Via Natural or Artificial Opening (ICD-10-PCS; 2021-05-02)
PROC: 02HV33Z Insertion of Infusion Device into Superior Vena Cava, Percutaneous Approach (ICD-10-PCS; 2021-05-02)
PROC: 3E043XZ Introduction of Vasopressor into Central Vein, Percutaneous Approach (ICD-10-PCS; 2021-05-02)
PROC: 06HT33Z Insertion of Infusion Device into Right Foot Vein, Percutaneous Approach (ICD-10-PCS; 2021-05-07)
PROC: 5A1D70Z Performance of Urinary Filtration, Intermittent, Less than 6 Hours Per Day (ICD-10-PCS; 2021-05-08)
DX: U07.1 COVID-19 (principal); J12.82 Pneumonia due to coronavirus disease 2019; J96.01 Acute respiratory failure with hypoxia; N17.9 Acute kidney failure, unspecified; Z66 Do not resuscitate; Z51.5 Encounter for palliative care; E87.2 Acidosis; E87.1 Hypo-osmolality and hyponatremia; I47.1 Supraventricular tachycardia; G47.33 Obstructive sleep apnea (adult) (pediatric); E78.5 Hyperlipidemia, unspecified; I12.9 Hypertensive chronic kidney disease with stage 1 through stage 4 chronic kidney disease, or unspecified chronic kidney disease; E11.22 Type 2 diabetes mellitus with diabetic chronic kidney disease; Z78.1 Physical restraint status; N18.9 Chronic kidney disease, unspecified; D63.1 Anemia in chronic kidney disease; I95.9 Hypotension, unspecified; E87.6 Hypokalemia; E11.65 Type 2 diabetes mellitus with hyperglycemia; E87.5 Hyperkalemia; T38.0X5A Adverse effect of glucocorticoids and synthetic analogues, initial encounter; E83.39 Other disorders of phosphorus metabolism; E11.649 Type 2 diabetes mellitus with hypoglycemia without coma; N40.0 Benign prostatic hyperplasia without lower urinary tract symptoms; F43.10 Post-traumatic stress disorder, unspecified; Z96.653 Presence of artificial knee joint, bilateral; Z96.611 Presence of right artificial shoulder joint; Z79.899 Other long term (current) drug therapy; Z79.01 Long term (current) use of anticoagulants; Z79.84 Long term (current) use of oral hypoglycemic drugs; Z88.5 Allergy status to narcotic agent; Z86.718 Personal history of other venous thrombosis and embolism; Z98.890 Other specified postprocedural states; Z87.891 Personal history of nicotine dependence; Z90.49 Acquired absence of other specified parts of digestive tract; Z90.89 Acquired absence of other organs
CPT/HCPCS: 31500; 36415; 36556; 36600; 71045; 76770; 80048; 80053; 80069; 80074; 81001; 82565; 82803; 82947; 83735; 84100; 84132; 84145; 84484; 85025; 85610; 85730; 86317; 87040; 87070; 87077; 87086; 87186; 87205; 93005; 93010; 93306; 94002; 94003; 94660; 94762; 96374; 99285-25; A9270; C1751; C1752; C9113; J0330; J0610; J0696; J1100; J1170; J1630; J1644; J1815; J1940; J2060; J2250; J2543; J2704; J3010; J3480; J7030; J7040; J7042; J7050; J7060; J7070; P9041; P9046